=== PATIENT | male | born 1985 | race Caucasian/White ===

== ENCOUNTER 2019-08-24 14:52 | Emergency (ER) | payer OTHER ==
--- NOTE | 2019-08-24 15:56 | RADIOLOGY REPORT (SQ) ---
EXAM DESCRIPTION: CHEST 2 VIEWS COMPLETED DATE/TIME: 08/24/2019 3:46 pm REASON FOR STUDY: cp COMPARISON: None. EXAM PARAMETERS: NUMBER OF VIEWS: two views TECHNIQUE: Digital Frontal and Lateral radiographic views of the chest acquired. RADIATION DOSE: NA LIMITATIONS: none FINDINGS: LUNGS AND PLEURA: No opacities, masses or pneumothorax. No pleural effusion. MEDIASTINUM AND HILAR STRUCTURES: No masses or contour abnormalities. HEART AND VASCULAR STRUCTURES: Heart normal size. No evidence for failure. BONES: No acute findings. HARDWARE: None in the chest. OTHER: No other significant finding. IMPRESSION: NO ACUTE RADIOGRAPHIC FINDING IN THE CHEST. TECHNICAL DOCUMENTATION: JOB ID: [id number] 2010 [employer]- All Rights Reserved Reading location - IP/workstation name: [email or web address]
[2019-08-24] MEDS ORDERED: ASPIRIN 81 MG TABLET, CHEWABLE PO ONE (16:21)
--- NOTE | 2019-08-24 16:23 | ER Document Report ---
ED Cardiac - General Chief Complaint: Chest Pain Stated Complaint: CHEST PAIN Time Seen by Provider: 08/24/19 15:45 Primary Care Provider: ZOEY TERAN MD [ACTIVE STAFF] - Follow up as needed KIRBY PINO MD [ACTIVE STAFF] - Follow up as needed [facility] [Primary Care Provider] - Follow up tomorrow Mode of Arrival: Ambulatory Information source: Patient Notes: Patient states that he was changing his license plate and was squatting. Patient states that he suddenly developed dizziness headedness and became diaphoretic. Patient states that time he had a chest discomfort that he describes as a fluttering in the left upper chest area. Patient states since then that the fluttering has resolved and he just has a pressure sensation. Patient states he did have nausea but this is resolved as well. Patient does report a history of A. fib in the past which required cardioversion in 2017. Patient denies taking any prescription medications at this time. TRAVEL OUTSIDE OF THE [place] IN LAST 30 DAYS: No - HPI Patient complains to provider of: Chest pain Was the onset of pain: Sudden Chest pain location: Other - Left upper chest area Quality of pain: Other - Fluttering in chest Pain level currently: 1 Chest pain precipitating factors: Squatting change in a lace and plate Positive cardiac history: Yes Associated symptoms: Diaphoresis, Dizziness, Lightheaded, Palpitations. denies: Back pain, Fatigue, Shortness of breath Exacerbated by: Denies Relieved by: Nothing Similar symptoms previously: Yes Recently seen / treated by doctor: No - Related Data Allergies/Adverse Reactions: No Known Allergies Allergy (Verified 08/24/19 15:51) Past Medical History - General Information source: Patient - Social History Smoking Status: Never Smoker Frequency of alcohol use: None Drug Abuse: Marijuana Occupation: None Lives with: Spouse/Significant other Family History: Reviewed & Not Pertinent Patient has suicidal ideation: No Patient has homicidal ideation: No - Medical History Medical History: Other - Lupus, drug-induced - Past Medical History Cardiac Medical History: Reports: Hx Atrial Fibrillation - Cardioverted Traumatic Medical History: Reports: Hx Traumatic Brain Injury Past Surgical History: Reports: Hx Orthopedic Surgery Review of Systems - Review of Systems Constitutional: No symptoms reported. denies: Fever, Recent illness EENT: No symptoms reported Cardiovascular: Chest pain, Palpitations, Lightheaded Respiratory: No symptoms reported. denies: Cough Gastrointestinal: Nausea. denies: Abdominal pain, Vomiting Genitourinary: No symptoms reported Male Genitourinary: No symptoms reported Musculoskeletal: No symptoms reported. denies: Back pain Skin: No symptoms reported Hematologic/Lymphatic: No symptoms reported Neurological/Psychological: No symptoms reported Physical Exam - Vital signs Vitals: Temp Pulse Resp BP Pulse Ox 97.4 F 67 16 115/63 100 08/24/19 15:09 08/24/19 15:09 08/24/19 15:09 08/24/19 15:09 08/24/19 15:09 - General General appearance: Appears well, Alert In distress: None - HEENT Head: Normocephalic, Atraumatic Eyes: Normal Conjunctiva: Normal Ears: Normal External canal: Normal Tympanic membrane: Serous effusion - left Nasal: Normal Mouth/Lips: Normal Mucous membranes: Normal Pharynx: Normal Neck: Normal, Supple. No: Lymphadenopathy - Respiratory Respiratory status: No respiratory distress Chest status: Tender Breath sounds: Normal Chest palpation: Normal - Cardiovascular Rhythm: Regular Heart sounds: S1 appreciated, S2 appreciated Murmur: No - Abdominal Inspection: Normal Distension: No distension Bowel sounds: Normal Tenderness: Nontender Organomegaly: No organomegaly - Back Back: Normal, Nontender. No: CVA tenderness - Extremities General upper extremity: Normal inspection, Normal strength General lower extremity: Normal inspection, Normal strength - Neurological Neuro grossly intact: Yes Cognition: Normal Orientation: AAOx4 [place] Coma Scale Eye Opening: Spontaneous [place] Coma Scale Verbal: Oriented [place] Coma Scale Motor: Obeys Commands [place] Coma Scale Total: 15 - Psychological Associated symptoms: Normal affect, Normal mood - Skin Skin Temperature: Warm Skin Moisture: Dry Skin Color: Normal Course - Re-evaluation Re-evalutation: 08/24/19 17:40 Patient's vital signs stable this time. Patient denies any chest discomfort although does report fluttering sensation to the chest. Patient's initial troponin without any elevation at this time. 08/24/19 18:[address] Miller regarding patient presentation. EKG reviewed. Agrees with plan for repeat troponin at this time. 08/24/19 19:46 Patient with stable vital signs, no chest pain at this time, no dyspnea. Presentation of chest pain in an otherwise well appearing patient. Low clinical suspicion for ACS given clinical history, exam, and negative initial and delta troponin. HEART score less than or equal to 3. PE also seems unlikely given clinical history, and absence of tachycardia. Patient is PERC criteria negative. CXR without evidence of pneumothorax or pneumonia. No widened mediastinum. Chest pain in a patient without evidence of cardiac or other serious etiology on workup today. I discussed with patient that, based on their age, risk factors and emergency department testing today, the likelihood that their symptoms are related to a heart attack is very low. The patient demonstrates decision making capacity and has verbalized an understanding of these risks to me. Based on this, the patient has chosen to follow-up as an outpatient. Usual chest pain return precautions reviewed. The patient states understanding and agreement with this plan. Patient was encouraged to see nursery supervisor on outpatient basis for Holter monitor placement - Vital Signs Vital signs: Temp Pulse Resp BP Pulse Ox 98.2 F 56 L 13 110/65 100 08/24/19 20:20 08/24/19 17:46 08/24/19 19:38 08/24/19 19:38 08/24/19 19:38 - Laboratory Result Diagrams: 08/24/19 16:00 08/24/19 16:00 Laboratory results interpreted by me: 08/24/19 16:00 WBC 3.9 L Labs- Entire Visit 08/24/19 08/24/19 08/24/19 16:00 16:00 16:00 WBC 3.9 L RBC 4.50 Hgb 14.3 Hct 40.8 MCV 91 MCH 31.7 MCHC 34.9 RDW 11.6 Plt Count 274 Lymph % (Auto) 41.4 [place] % (Auto) 8.9 Eos % (Auto) 1.4 Baso % (Auto) 1.1 Absolute Neuts (auto) 1.8 Absolute Lymphs (auto) 1.6 Absolute Monos (auto) 0.3 Absolute Eos (auto) 0.1 Absolute Basos (auto) 0.0 Seg Neutrophils % 47.2 Sodium 139.2 Potassium 4.6 Chloride 103 Carbon Dioxide 29 Anion Gap 7 BUN 17 Creatinine 0.77 Est GFR ( Amer) > 60 Est GFR (MDRD) Non-Af > 60 Glucose 95 Calcium 9.6 Total Bilirubin 1.3 Direct Bilirubin 0.1 Neonat Total Bilirubin Not Reportable Neonat Direct Bilirubin Not Reportable Neonat Indirect Bili Not Reportable AST 24 ALT 13 Alkaline Phosphatase 42 Creatine Kinase 95 CK-MB (CK-2) 0.71 Troponin I < 0.012 Total Protein 7.1 Albumin 4.0 Lipase 64.1 08/24/19 18:06 WBC RBC Hgb Hct MCV MCH MCHC RDW Plt Count Lymph % (Auto) [place] % (Auto) Eos % (Auto) Baso % (Auto) Absolute Neuts (auto) Absolute Lymphs (auto) Absolute Monos (auto) Absolute Eos (auto) Absolute Basos (auto) Seg Neutrophils % Sodium Potassium Chloride Carbon Dioxide Anion Gap BUN Creatinine Est GFR ( Amer) Est GFR (MDRD) Non-Af Glucose Calcium Total Bilirubin Direct Bilirubin Neonat Total Bilirubin Neonat Direct Bilirubin Neonat Indirect Bili AST ALT Alkaline Phosphatase Creatine Kinase CK-MB (CK-2) Troponin I < 0.012 Total Protein Albumin Lipase - Diagnostic Test Radiology reviewed: Reports reviewed - EKG Interpretation by [place] EKG shows normal: Sinus rhythm Rate: Normal Additional EKG results interpreted by me: 08/24/19 19:46 qtc 389 Discharge - Discharge Clinical Impression: Chest pain Qualifiers: Chest pain type: unspecified Qualified Code(s): R07.9 - Chest pain, unspecified Condition: Stable Disposition: HOME, SELF-CARE Instructions: Chest Pain of Unclear Cause ([facility]) Additional Instructions: Return immediately for any new or worsening symptoms Followup with your primary care provider, call tomorrow to make a followup appointment Follow-up with nursery supervisor for Holter monitor/event recorder placement Referrals: [facility] [Primary Care Provider] - Follow up tomorrow KIRBY PINO MD [ACTIVE STAFF] - Follow up as needed ZOEY TERAN MD [ACTIVE STAFF] - Follow up as needed
[2019-08-24 16:36] LABS: ABSOLUTE EOSINOPHILS # (AUTO) 0.1 10^3/uL (0.0-0.6); ABSOLUTE LYMPHOCYTES (AUTO) 1.6 10^3/uL (0.5-4.7); TOTAL CELLS COUNTED % (AUTO) 100 %
[2019-08-24 16:45] LABS: ABSOLUTE MONOCYTES (AUTO) 0.3 10^3/uL (0.1-1.4); ABSOLUTE NEUT (AUTO) 1.8 10^3/uL (1.7-8.2); BASOPHILS % (AUTO) 1.1 % (0-2); EOSINOPHILS % (AUTO) 1.4 % (0-6); HEMATOCRIT 40.8 % (37.9-51.0); HEMOGLOBIN 14.3 g/dL (13.5-17.0); LYMPHOCYTES % (AUTO) 41.4 % (13-45); MEAN CORPUSCULAR HEMOGLOBIN 31.7 pg (27.0-33.4); MEAN CORPUSCULAR HGB CONC 34.9 g/dL (32.0-36.0); MEAN CORPUSCULAR VOLUME 91 fl (80-97); MONOCYTES % (AUTO) 8.9 % (3-13); PLATELET COUNT 274 10^3/uL (150-450); RED CELL DISTRIBUTION WIDTH 11.6 % (11.5-14.0); SEGMENTED NEUTROPHILS % (AUTO) 47.2 % (42-78); WHITE BLOOD COUNT 3.9 10^3/uL (4.0-10.5)
[2019-08-24 16:50] LABS: ALKALINE PHOSPHATASE 42 U/L (38-126); ANION GAP 7 (5-19); ASPARTATE AMINO TRANSFERASE 24 U/L (17-59); BILIRUBIN,DIRECT 0.1 mg/dL (0.0-0.4); BILIRUBIN,TOTAL 1.3 mg/dL (0.2-1.3); BLOOD UREA NITROGEN 17 mg/dL (7-20); CALCIUM 9.6 mg/dL (8.4-10.2); CARBON DIOXIDE 29 mmol/L (22-30); CHLORIDE 103 mmol/L (98-107); CREATINE KINASE 95 U/L (55-170); GLUCOSE 95 mg/dL (75-110); POTASSIUM 4.6 mmol/L (3.6-5.0); TOTAL PROTEIN 7.1 g/dL (6.3-8.2)
[2019-08-24 17:02] LABS: CREATINE KINASE MB 0.71 ng/mL (<4.55)
[2019-08-24 17:09] LABS: TROPONIN I < 0.012 ng/mL
[2019-08-24] MEDS ORDERED: NORMAL SALINE 1000 ML 1,000 ML IV ONE (17:33)
[2019-08-24 20:16] VITALS: BP 110/65
--- NOTE | 2019-08-24 22:38 | EKG REPORT ---
SEVERITY:- ABNORMAL ECG - SINUS RHYTHM PROBABLE ANTEROSEPTAL INFARCT, AGE INDETERM : Confirmed by: Chichi Silva 24-Aug-2019 22:37:40
== END 2019-08-24 20:22 | disposition home or self-care (01) ==
LOC: ER 14:52
DX: R07.89 Other chest pain (principal); R42 Dizziness and giddiness; R61 Generalized hyperhidrosis; R00.2 Palpitations; F12.10 Cannabis abuse, uncomplicated
CPT/HCPCS: 93005; 99285; 96360; 36415; 82553; 82550; 83690; 85025; 80053; 84484; 71046; 93010; J7030

== ENCOUNTER 2019-08-25 21:18 | Emergency (ER) | payer OTHER ==
[2019-08-25] MEDS ORDERED: ASPIRIN 81 MG TABLET, CHEWABLE PO ONE (21:50)
--- NOTE | 2019-08-25 21:54 | ER Document Report ---
ED Medical Screen (RME) - General Chief Complaint: Chest Pain Stated Complaint: CHEST PAIN Time Seen by Provider: 08/25/19 21:44 Primary Care Provider: FERNANDO QUICK [Primary Care Provider] - Follow up as needed Notes: Patient is a 33 y/o male who presents to the ED with chest pain. States it is on the left side of his chest. He was seen here yesterday for chest pain, but feels tonights chest pain in more intense. He has a history of A.fib with cardioversion in 2018. He is currently not on any medications. Exam: S1, S2. I have greeted and performed a rapid initial assessment of this patient. A comprehensive ED assessment and evaluation of the patient, analysis of test results and completion of medical decision making process will be conducted by an additional ED providers. TRAVEL OUTSIDE OF THE [place] IN LAST 30 DAYS: No - Related Data Allergies/Adverse Reactions: No Known Allergies Allergy (Verified 08/24/19 15:51) Past Medical History - Past Medical History Cardiac Medical History: Reports: Hx Atrial Fibrillation - Cardioverted Traumatic Medical History: Reports: Hx Traumatic Brain Injury Past Surgical History: Reports: Hx Orthopedic Surgery Physical Exam - Vital signs Vitals: Temp Pulse Resp BP Pulse Ox 98.5 F 64 16 116/49 L 99 08/25/19 21:30 08/25/19 21:30 08/25/19 21:30 08/25/19 21:30 08/25/19 21:30 Course - Vital Signs Vital signs: Temp Pulse Resp BP Pulse Ox 98.5 F 64 16 116/49 L 99 08/25/19 21:30 08/25/19 21:30 08/25/19 21:30 08/25/19 21:30 08/26/19 00:15 - Laboratory Result Diagrams: 08/25/19 22:40 08/25/19 22:40 Laboratory results interpreted by me: 08/25/19 22:40 Carbon Dioxide 32 H Doctor's Discharge - Discharge Referrals: FERNANDO QUICK [Primary Care Provider] - Follow up as needed
--- NOTE | 2019-08-25 22:51 | RADIOLOGY REPORT (SQ) ---
EXAM DESCRIPTION: AP portable chest radiograph CLINICAL HISTORY: 33 years Male, chest pain COMPARISON: Two views of the chest 08/24/2019 FINDINGS: Lungs: Lungs are clear. No pneumonia or edema. No pneumothorax or pleural effusion. Apical pleural parenchymal scarring is stable. Mediastinum: Cardiac and mediastinal silhouette are normal. Bones: Osseous structures are normal. IMPRESSION: No acute process. No significant interval change.
[2019-08-25 22:54] LABS: ABSOLUTE BASOPHILS # (AUTO) 0.1 10^3/uL (0.0-0.2); ABSOLUTE EOSINOPHILS # (AUTO) 0.1 10^3/uL (0.0-0.6); ABSOLUTE LYMPHOCYTES (AUTO) 2.8 10^3/uL (0.5-4.7); ABSOLUTE MONOCYTES (AUTO) 0.5 10^3/uL (0.1-1.4); ABSOLUTE NEUT (AUTO) 3.1 10^3/uL (1.7-8.2); EOSINOPHILS % (AUTO) 1.6 % (0-6); HEMATOCRIT 40.9 % (37.9-51.0); HEMOGLOBIN 13.9 g/dL (13.5-17.0); LYMPHOCYTES % (AUTO) 42.9 % (13-45); MEAN CORPUSCULAR HEMOGLOBIN 31.3 pg (27.0-33.4); MEAN CORPUSCULAR HGB CONC 33.9 g/dL (32.0-36.0); MEAN CORPUSCULAR VOLUME 92 fl (80-97); PLATELET COUNT 266 10^3/uL (150-450); RED BLOOD COUNT 4.43 10^6/uL (4.35-5.55); RED CELL DISTRIBUTION WIDTH 11.7 % (11.5-14.0); SEGMENTED NEUTROPHILS % (AUTO) 47.5 % (42-78); TOTAL CELLS COUNTED % (AUTO) 100 %; WHITE BLOOD COUNT 6.6 10^3/uL (4.0-10.5)
[2019-08-25 23:16] LABS: ALBUMIN 4.2 g/dL (3.5-5.0); ALKALINE PHOSPHATASE 44 U/L (38-126); ANION GAP 7 (5-19); ASPARTATE AMINO TRANSFERASE 25 U/L (17-59); BILIRUBIN,DIRECT 0.3 mg/dL (0.0-0.4); BILIRUBIN,TOTAL 0.9 mg/dL (0.2-1.3); BLOOD UREA NITROGEN 18 mg/dL (7-20); CALCIUM 9.6 mg/dL (8.4-10.2); CARBON DIOXIDE 32 mmol/L (22-30); CHLORIDE 102 mmol/L (98-107); CREATINE KINASE 89 U/L (55-170); GLUCOSE 83 mg/dL (75-110); TOTAL PROTEIN 7.2 g/dL (6.3-8.2)
[2019-08-26] MEDS ORDERED: KETOROLAC TROMETHAMINE INJ/PF 30 MG/1 ML SDV IV ONE (00:27)
--- NOTE | 2019-08-26 01:55 | ER Document Report ---
ED General - General Chief Complaint: Chest Pain Stated Complaint: CHEST PAIN Time Seen by Provider: 08/25/19 21:44 Primary Care Provider: FERNANDO QUICK [Primary Care Provider] - Follow up as needed TRAVEL OUTSIDE OF THE [place] IN LAST 30 DAYS: No - HPI Notes: This is a 33-year-old male seen for evaluation of chest pain. 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 He had a normal ANSHU. He was cardioverted at that time and took Eliquis for 3 months. He was advised that he had "lone atrial fibrillation" and no long-term treatment was recommended. Recently he has had several recurrent brief episodes of nonexertional sharp upper anterior left-sided chest pain. He does not relate this to any unaccustomed activity or injury. He came in yesterday for this and was seen at triage by 1 of the midlevel providers and had cardiac labs ordered including troponin. He actually had 2 troponins while here yesterday but left before being seen by physician. Both the values were normal. He has had another episode of sharp discomfort tonight left anterior chest area while driving and decided to come in for further evaluation. Presently his pain is described as 4/10 intensity. It is aggravated by taking a deep breath or turning to the left side. Patient denies any personal or family history of thromboembolic disease. Several family members have had coronary disease but none under the age of 35. Patient is a non-smoker. He has no history of hypertension, no history of diabetes mellitus and no history of hyperlipidemia. He had denies any history of using cocaine. Onset HEART Score: HISTORY 0 ECG 0 AGE 0 RISK FACTORS 1 TROPONIN 0 TOTAL: 1 PERC SCORE (HADCLOTS) H Hormone administration A Age less than 50 D NO DVT/PE previously C no hemoptysis L no leg swelling unilaterally O O2 greater than 95% T no tachycardia S no surgery/Trauma recently If HEART score is = 3 AND both tronponin measurments are normal, the 30 day risk of a major adverse cardiac event (all-cause mortality, myocardia infarction or need for coronary revscularization) is < 1% (Sensitivity 100%, NPV 100%). - Related Data Allergies/Adverse Reactions: No Known Allergies Allergy (Verified 08/24/19 15:51) Past Medical History - General Information source: Patient - Social History Smoking Status: Current Some Day Smoker Chew tobacco use (# tins/day): No Frequency of alcohol use: None Drug Abuse: Marijuana Family History: Reviewed & Not Pertinent Patient has suicidal ideation: No Patient has homicidal ideation: No - Past Medical History Cardiac Medical History: Reports: Hx Atrial Fibrillation - Cardioverted Traumatic Medical History: Reports: Hx Traumatic Brain Injury Past Surgical History: Reports: Hx Orthopedic Surgery - knee left Review of Systems - Review of Systems Notes: Constitutional: Negative for fever. HENT: Negative for sore throat. Eyes: Negative for visual changes. Cardiovascular: As per HPI. Respiratory: Negative for shortness of breath. Gastrointestinal: Negative for abdominal pain, vomiting or diarrhea. Genitourinary: Negative for dysuria. Musculoskeletal: Negative for back pain. Skin: Negative for rash. Neurological: Negative for headaches, weakness or numbness. 10 point ROS negative except as marked above and in HPI. Physical Exam - Vital signs Vitals: Temp Pulse Resp BP Pulse Ox 98.5 F 64 16 116/49 L 99 08/25/19 21:30 08/25/19 21:30 08/25/19 21:30 08/25/19 21:30 08/25/19 21:30 - Notes Notes: GENERAL: Well-developed well-nourished appearing in no acute distress. SKIN: Good turgor no rashes. HEAD: Normocephalic atraumatic. EYES: PERRLA. EOMI. Conjunctivae and sclerae clear. EARS: CANALS AND TMS CLEAR. NOSE: CLEAR. MOUTH: Moist mucosa. Good dentition. No stridor or edema. No drooling. NECK: Supple. No masses or thyromegaly. No adenopathy. Carotids 2+ without bruits. No JVD. BACK: Symmetrical without tenderness. CHEST: Respirations unlabored. Breath sounds clear and symmetrical. HEART: Tender over upper anterior chest on the left with exact reproduction of symptoms. Regular rhythm. No murmur gallop or rub. ABDOMEN: Soft nontender without masses, organomegaly or rebound. Bowel sounds normally active. No bruits. GENITALIA: Deferred. EXTREMITIES: No edema. No calf tenderness. Cap refill less than 1.5 seconds. Dorsalis pedis and posterior tibial pulses 3+ and symmetrical. NEUROLOGICAL: GCS 15. Alert and oriented x3. Normal gait. Fluent speech. Cranial nerves II through XII intact. Sensorimotor and cerebellar normal. Normal tone. PSYCHIATRIC: Appropriate affect. Course - Re-evaluation Re-evalutation: 08/26/19 01:56 Troponin here tonight is again negative. His EKG shows no acute changes. His pain is completely reproducible with palpation of the chest wall. His d-dimer is negative. Patient's risk profile for ischemia would appear to be extremely low. His heart score is 1. I gave the patient a dose of IV Toradol with prompt total relief of his discomfort. Extended discussion with patient and his . I think he is very stable for outpatient follow-up with his physician and I would suggest that he get an outpatient treadmill study. I will place patient on NSAID at home and have told him he can of course return here for new or worsening symptoms. - Vital Signs Vital signs: Temp Pulse Resp BP Pulse Ox 98.5 F 55 L 15 99/53 L 98 08/25/19 21:30 08/26/19 01:26 08/26/19 01:26 08/26/19 01:26 08/26/19 01:26 - Laboratory Result Diagrams: 08/25/19 22:40 08/25/19 22:40 Laboratory results interpreted by me: 08/25/19 22:40 Carbon Dioxide 32 H Discharge - Discharge Clinical Impression: Costochondritis Chest pain Qualifiers: Chest pain type: unspecified Qualified Code(s): R07.9 - Chest pain, unspecified Condition: Stable Disposition: HOME, SELF-CARE Instructions: Chest Wall Pain ([facility]) Prescriptions: Naproxen 500 mg PO BID PRN 7 Days #14 tablet PRN Reason: Referrals: [facility] [Primary [facility]] - Follow up as needed
[2019-08-26 02:23] VITALS: BP 118/61
--- NOTE | 2019-08-26 10:46 | EKG REPORT ---
SEVERITY:- NORMAL ECG - SINUS RHYTHM : Confirmed by: Chichi Silva 26-Aug-2019 10:46:07
== END 2019-08-26 02:23 | disposition home or self-care (01) ==
LOC: ER 21:18
DX: R07.9 Chest pain, unspecified (principal); M94.0 Chondrocostal junction syndrome [Tietze]
CPT/HCPCS: 93005; 99284; 96374; 36415; 82550; 83735; 85025; 80053; 84484; 85379; 71045; 93010; J1885